=== PATIENT | female | born 1960 | race Caucasian/White ===

== ENCOUNTER 2024-10-26 05:18 | Observation (INO) | payer MEDICARE, OTHER ==
[~2024-10-26] VITALS: Ht 162.6 cm; Wt 98.6 kg
[~2024-10-26 05:18] MED LIST: APIX2.5T PO; ATOR10TA PO; CARV-165 PO; GABA-1216 PO; ICOS0.5C PO; MIDO5TAB29 PO; PANT-31 PO; RAMI5CAP73 PO; SODIUM CHLORIDE 0.9% 1,000 ML ONE
[2024-10-26 06:03] LABS: CALCIUM, TOTAL 9.7 mg/dL (8.8-10.5); CREATININE 5.46 mg/dL (0.60-1.30); GLOMERULAR FILTR. RATE CALC 8.0 mL/min (>60); GLUCOSE,RANDOM 186.0 mg/dL (70-110); PLATELET COUNT (AUTO) 221 K/uL (150-450); RED BLOOD CELL COUNT(AUTO) 3.55 MIL/uL (4.00-5.20); RED CELL DISTRIBUTION WIDTH 14.6 % (11.5-14.5); SODIUM SERUM 141.0 mmol/L (136-145); UREA NITROGEN, BLOOD 37.0 mg/dL (7-18); WHITE BLOOD COUNT (AUTO) 11.1 K/uL (4.5-11.0)
[2024-10-26] MEDS ORDERED: LINA5TAB PO (06:05)
[2024-10-26] MEDS ORDERED: SODI5POW3 PO (06:07)
[2024-10-26] MEDS ORDERED: LEVO5TAB13 PO (06:07)
[2024-10-26] MEDS ORDERED: ICOS1CAP2 PO (06:07)
[2024-10-26] MEDS ORDERED: AMLO5TAB66 PO (06:07)
[2024-10-26] MEDS ORDERED: HEPARIN SODIUM 1000 UNITS/NS 1,000 ML ONE (07:10)
[2024-10-26] MEDS ORDERED: IOHEXOL 300 MG/ML 100 ML VIAL ONE (07:10)
[2024-10-26] MEDS ORDERED: SODIUM BICARBONATE 50 MEQ/50 ML VIAL ONE (07:10)
[2024-10-26] MEDS ORDERED: LIDOCAINE/PF 1% 30 ML VIAL ONE (07:10)
[2024-10-26] MEDS: SODIUM CHLORIDE 0.9% 1,000 ML IV ONE (07:19)
[2024-10-26] MEDS ORDERED: FentaNYL CITRATE PF 100 MCG/2 ML VIAL ONE ×2 (07:33→08:29)
[2024-10-26] MEDS ORDERED: MIDAZOLAM HCL 2 MG/2 ML VIAL ONE (07:34)
[2024-10-26 07:43] VITALS: BP 191/89; PULSE 72
[2024-10-26] MEDS ORDERED: LABETALOL HCL 5 MG/ML 20 ML VIAL IVP ONE (07:49)
[2024-10-26] MEDS: HEPARIN SODIUM 1000 UNITS/NS 1,000 ML IARTER ONE (08:19)
[2024-10-26] MEDS: HEPARIN SODIUM,PORCINE 1,000 UNITS/ML 10 ML VIAL IVP ONE ×2 (08:19→09:03)
[2024-10-26] MEDS: LIDOCAINE 1% 30 ML/SOD BICARB 8.4% 4 ML SQ ONE (08:19)
[2024-10-26] MEDS: FentaNYL CITRATE PF 100 MCG/2 ML VIAL IVP ONE ×3 (08:21→09:01)
[2024-10-26] MEDS: MIDAZOLAM HCL 2 MG/2 ML VIAL IVP ONE ×3 (08:21→09:01)
[2024-10-26] MEDS: LABETALOL HCL 5 MG/ML 20 ML VIAL IVP ONE ×3 (08:23→09:00)
[2024-10-26] MEDS: IOHEXOL 300 MG/ML 100 ML VIAL IARTER ONE ×2 (08:25→08:27)
[2024-10-26] MEDS ORDERED: CLOPIDOGREL BISULFATE 300 MG TABLET ONE (08:52)
[2024-10-26] MEDS ORDERED: ASPIRIN 325 MG TABLET ONE (08:52)
[2024-10-26] MEDS: ASPIRIN 325 MG TABLET PO ONE (09:02)
[2024-10-26] MEDS: CLOPIDOGREL BISULFATE 300 MG TABLET PO ONE (09:02)
[2024-10-26 09:03] VITALS: BP 177/84; PULSE 67
[2024-10-26] MEDS ORDERED: HYDROCODONE/ACETAMINOPHEN 5-325 MG TABLET PO PRN ×2 (09:15→14:00)
[2024-10-26] MEDS ORDERED: MORPHINE SULFATE 2 MG/ML SYRINGE IVP PRN ×2 (09:15→14:00)
[2024-10-26] MEDS ORDERED: LABETALOL HCL 5 MG/ML 20 ML VIAL IVP PRN (09:15)
[2024-10-26] MEDS ORDERED: NITROGLYCERIN 0.4 MG SUBLINGUAL TABLET #25 SL PRN (09:15)
[2024-10-26] MEDS ORDERED: ACETAMINOPHEN 325 MG TABLET PO PRN (09:15)
[2024-10-26] MEDS: GABAPENTIN 100 MG CAPSULE PO ONE (10:14)
[2024-10-26] MEDS ORDERED: MAGNESIUM HYDROXIDE SUSPENSION 30 ML UDCUP PO PRN (14:00)
[2024-10-26] MEDS ORDERED: ZOLPIDEM TARTRATE 5 MG TABLET PO PRN (14:00)
[2024-10-26] MEDS ORDERED: ONDANSETRON HCL 4 MG/2 ML VIAL IVP PRN (14:00)
[2024-10-26] MEDS ORDERED: BISACODYL 10 MG RECTAL RECTAL SUPPOSITORY PR PRN (14:00)
[2024-10-26] MEDS: ACETAMINOPHEN 325 MG TABLET PO PRN (14:37)
[2024-10-26 16:07] VITALS: BP 151/68; PULSE 73; RESP 18; TEMP 98; O2SAT 98
[2024-10-26 20:23] VITALS: BP 140/73; PULSE 67; RESP 19; TEMP 98.2; O2SAT 97
[2024-10-26] MEDS ORDERED: [UNRECOGNIZED DRUG - OTHER] PO SCH (21:00)
[2024-10-26] MEDS ORDERED: MIDODRINE HCL 5 MG TABLET PO SCH (21:00)
[2024-10-26] MEDS: DOCUSATE SODIUM 100 MG CAPSULE PO SCH (21:00)
[2024-10-26 21:21] LABS: GLUCOMETER DEV NAME(LOC) 5N.1D; GLUCOSE,POINT OF CARE 255 MG/DL (70-110)
[2024-10-27] VITALS (13 sets, daily range): BP systolic 125–167; BP diastolic 60–94; PULSE 59–78; RESP 18–19; TEMP 97.6–98.2; O2SAT 95–100
[2024-10-27] MEDS ORDERED: DEXTROSE 50%-WATER 25 GM/50 ML SYRINGE IVP PRN
[2024-10-27 00:01] LABS: GLUCOMETER DEV NAME(LOC) 5N.2C; GLUCOSE,POINT OF CARE 202 MG/DL (70-110)
[2024-10-27 06:07] LABS: CALCIUM, TOTAL 9.0 mg/dL (8.8-10.5); CREATININE 6.91 mg/dL (0.60-1.30); GLOMERULAR FILTR. RATE CALC 6.0 mL/min (>60); GLUCOSE,RANDOM 126.0 mg/dL (70-110); SODIUM SERUM 140.0 mmol/L (136-145); UREA NITROGEN, BLOOD 52.0 mg/dL (7-18)
[2024-10-27 06:12] LABS: PLATELET COUNT (AUTO) 212 K/uL (150-450); RED BLOOD CELL COUNT(AUTO) 3.26 MIL/uL (4.00-5.20); RED CELL DISTRIBUTION WIDTH 14.7 % (11.5-14.5); WHITE BLOOD COUNT (AUTO) 13.7 K/uL (4.5-11.0)
[2024-10-27] MEDS: MIDODRINE HCL 5 MG TABLET PO SCH (07:59)
[2024-10-27 08:41] LABS: GLUCOMETER DEV NAME(LOC) 5S.1D; GLUCOSE,POINT OF CARE 124 MG/DL (70-110)
[2024-10-27] MEDS ORDERED: PANTOPRAZOLE SODIUM 40 MG DR TABLET PO SCH (09:00)
[2024-10-27] MEDS ORDERED: CARV3 PO (10:12)
[2024-10-27] MEDS ORDERED: AMLO-257 PO (10:12)
[2024-10-27] MEDS ORDERED: CLOP75TA83 PO (10:12)
[2024-10-27] MEDS ORDERED: APIX2.5T PO (10:12)
[2024-10-27] MEDS ORDERED: MIDO5TAB29 PO (10:12)
[2024-10-27] MEDS: PANTOPRAZOLE SODIUM 40 MG DR TABLET PO SCH (12:23)
[2024-10-27] MEDS: ATORVASTATIN CALCIUM 10 MG TABLET PO SCH (12:24)
[2024-10-27] MEDS: CLOPIDOGREL BISULFATE 75 MG TABLET PO SCH (12:24)
[2024-10-27] MEDS: APIXABAN 2.5 MG TABLET PO SCH (12:24)
[2024-10-27] MEDS: SODIUM ZIRCONIUM CYCLOSILICATE 5 GM POWDER PACKET PO SCH (12:25)
[2024-10-27 12:31] LABS: GLUCOMETER DEV NAME(LOC) 5N.2C; GLUCOSE,POINT OF CARE 162 MG/DL (70-110)
[2024-10-27] MEDS: INSULIN LISPRO 100 UNITS/ML SQ PRN (12:31)
== END 2024-10-27 15:35 | disposition home or self-care (01) ==
LOC: CATHLAB 05:18 → 5S 14:07 → INTOOBSV 14:07
PROVIDERS: ADMIT Internal Medicine; ATTEND Internal Medicine
DX: I25.110 Atherosclerotic heart disease of native coronary artery with unstable angina pectoris (principal); I48.0 Paroxysmal atrial fibrillation; I12.0 Hypertensive chronic kidney disease with stage 5 chronic kidney disease or end stage renal disease; E11.22 Type 2 diabetes mellitus with diabetic chronic kidney disease; N18.6 End stage renal disease; E78.5 Hyperlipidemia, unspecified; D63.8 Anemia in other chronic diseases classified elsewhere; R32 Unspecified urinary incontinence; E66.3 Overweight; E11.51 Type 2 diabetes mellitus with diabetic peripheral angiopathy without gangrene; Z85.42 Personal history of malignant neoplasm of other parts of uterus; Z88.1 Allergy status to other antibiotic agents; Z90.710 Acquired absence of both cervix and uterus; Z95.5 Presence of coronary angioplasty implant and graft; Z99.2 Dependence on renal dialysis; Z79.4 Long term (current) use of insulin; Z90.49 Acquired absence of other specified parts of digestive tract; Z68.37 Body mass index [BMI] 37.0-37.9, adult
CPT/HCPCS: 96365; 80048 ×2; 82962 ×2; 85025 ×2; 85610; 85730; 36415 ×2; 87081; 93005; 93458; 99219; 84132; C1887; C1760; C9600; J1200; J3010; J1644; J3490 ×3; J2250; J2919; J7030 ×2; Q9967; C1874 ×2; 90935; 90937; 92920; 92928; G0378